=== PATIENT | male | born 1970 | race Caucasian/White ===

== ENCOUNTER 2016-07-30 21:36 | Emergency (ER) | payer OTHER ==
[~2016-07-30] VITALS: Ht 170.2 cm; Wt 69.9 kg
[~2016-07-30 21:36] MED LIST: BUPR150T15 PO; PRED50TA PO
[2016-07-30 22:51] VITALS: BP 97/61
[2016-07-30] MEDS ORDERED: HYDROXYZINE PAMOATE 25 MG CAPSULE PO ONE (23:00)
[2016-07-30] MEDS ORDERED: HYDR25TA PO (23:01)
--- NOTE | 2016-07-30 23:02 | PHYS DOC ---
Past Medical History Past Medical History: Anxiety, Depression Additional Past Medical Histor: Eczema, ?Bipolar/Schizophrenia Past Surgical History: Other Additional Past Surgical Histo: Hernia, Eye Alcohol Use: Occasionally Drug Use: Marijuana Adult General Chief Complaint Chief Complaint: PSYCH EVALUATION [facility] HPI Patient is a 46 year old male with possible bipolar or schizophrenia on chronic Invega injection monthly who presents with recent stress, chronic stable auditory hallucinations, and chronic itching due to eczema. States his intake and does not control his auditory hallucinations as well as he would like , and they're somewhat worse with stress. He has not discussed this with his psychiatrist at [facility]. He has a meeting with his biomedical equipment technician tomorrow and plans to discuss this. He denies suicidality, homicidality, visual hallucinations, command hallucinations. He denies headache, vision changes, fever or chills, nausea or vomiting, diarrhea, dysuria. He uses triamcinolone cream for eczema. Review of Systems Review of Systems Constitutional: Denies fever or chills [] Eyes: Denies change in visual acuity, redness, or eye pain [] HENT: Denies nasal congestion or sore throat [] Respiratory: Denies cough or shortness of breath [] Cardiovascular: No additional information not addressed in HPI [] GI: Denies abdominal pain, nausea, vomiting, bloody stools or diarrhea [] : Denies dysuria or hematuria [] Musculoskeletal: Denies back pain or joint pain [] Integument: Denies skin lesions [] Neurologic: Denies headache, focal weakness or sensory changes [] Endocrine: Denies polyuria or polydipsia [] Current Medications Current Medications Current Medications Medications (Trade) Dose Ordered Sig/Isac Start Time Stop Time Status Last Admin Dose Admin Hydroxyzine Pamoate (Vistaril) 25 mg 1X ONCE 07/30/16 23:00 07/30/16 23:01 DC 07/30/16 23:06 25 MG Allergies Allergies Allergies Coded Allergies Type Severity Reaction Last Updated Verified peanut Allergy Severe 09/06/14 No Penicillins Allergy Intermediate 09/06/14 Yes fish derived Allergy Intermediate 09/06/14 No Physical Exam Physical Exam Constitutional: Well developed, well nourished, no acute distress, non-toxic appearance. [] HENT: Normocephalic, atraumatic, bilateral external ears normal, oropharynx moist, no oral exudates, nose normal. [] Eyes: Right pupil reactive to light, left eye clouded, EOMI, conjunctiva normal , no discharge. [] Neck: Normal range of motion, no tenderness, supple. [] Cardiovascular:Heart rate regular rhythm [] Lungs & Thorax: Bilateral breath sounds clear to auscultation [] Abdomen: Bowel sounds normal, soft, no tenderness. [] Skin: Warm, dry. Diffuse eczema plaques to extremities and thorax [] Back: Normal ROM. [] Extremities: No tenderness, ROM intact, no edema. [] Neurologic: Alert and oriented X 3, normal motor function, normal sensory function, no focal deficits noted. [] Psychologic: Affect normal, judgement normal, mood normal. [] Current Patient Data Vital Signs Vital Signs Date Time Temp Pulse Resp B/P Pulse Ox O2 Delivery O2 Flow Rate FiO2 07/30/16 22:51 96 18 97/61 99 Room Air 07/30/16 21:40 97.5 97.5 Course & Med Decision Making Course & Med Decision Making Pertinent Labs and Imaging studies reviewed. (See chart for details) He appears clinically stable and has a close follow up plan with psychiatry and his case management coordinator. Discussed vistaril can help with itching, but otherwise discussed supportive care. Return precautions given. He understands and agrees with plan. Dragon Disclaimer Dragon Disclaimer This electronic medical record was generated, in whole or in part, using a voice recognition dictation system. Departure Departure Impression: Primary Impression: Auditory hallucinations Additional Impression: Eczema Disposition: 01 HOME, SELF-CARE Condition: STABLE Referrals: MARIELA MULLER MD (PCP) Patient Instructions: Eczema Additional Instructions: Take hydroxyzine as needed for itching. Continue your triamcinolone cream. Follow-up with your psychiatrist and primary care doctor within one week. Return for any concerns. Scripts Hydroxyzine Hcl 25 Mg Tablet1 Tab PO TID PRN ITCHING #14 TAB Prov:Jenny LAWRENCE MD 07/30/16 Problem Qualifiers Additional Impression: Eczema Eczema type: unspecified Qualified Code: L30.9 - Dermatitis, unspecified Jenny LAWRENCE MD Jul 30, 2016 23:02
== END 2016-07-30 23:15 | disposition home or self-care (01) ==
LOC: ER 21:36
DX: R44.0 Auditory hallucinations (principal); L30.9 Dermatitis, unspecified; F41.9 Anxiety disorder, unspecified; F32.9 Major depressive disorder, single episode, unspecified; F12.10 Cannabis abuse, uncomplicated; Z91.010 Allergy to peanuts; Z88.0 Allergy status to penicillin; Z91.013 Allergy to seafood
CPT/HCPCS: 99283; Q0177

== ENCOUNTER 2017-06-14 09:07 | Inpatient (IN) | payer OTHER ==
[2017-06-14] MEDS: IPRATRPIUM/ALBUTEROL 0.5/2.5MG 3 ML NEBU. NEB ×4 (09:31→19:50)
[2017-06-14 10:28] LABS: ADD MAN DIFF? NO
[2017-06-14] MEDS: methylPREDNISolone SOD SUCC PF 125 MG/2 ML VIAL. IV ×3 (10:33→21:20)
[2017-06-14 10:35] LABS: BASO # 0.1 x10^3/uL (0.0-0.2); BASO % 1 % (0-3); EOS # 0.9 x10^3/uL (0.0-0.7); EOS % 10 % (0-3); HEMATOCRIT 45.6 % (39.0-53.0); HEMOGLOBIN 15.2 g/dL (13.0-17.5); LYMPH # 2.2 x10^3/uL (1.0-4.8); LYMPH % 24 % (24-48); MEAN CORPUSCULAR HEMOGLOBIN 31 pg (25-35); MEAN CORPUSCULAR HGB CONC 33 g/dL (31-37); MEAN CORPUSCULAR VOLUME 94 fL (79-100); MONO % 12 % (0-9); NEUT # 4.8 x10^3uL (1.8-7.7); NEUT % 54 % (31-73); PLATELET COUNT 221 x10^3/uL (140-400); RED BLOOD COUNT 4.85 x10^6/uL (4.30-5.70); RED CELL DISTRIBUTION WIDTH 14.6 % (11.5-14.5)
[2017-06-14 10:42] LABS: ANION GAP 10 (6-14); BLOOD UREA NITROGEN 17 mg/dL (8-26); BUN/CREATININE RATIO 21 (6-20); CALCIUM 9.3 mg/dL (8.5-10.1); CARBON DIOXIDE 29 mmol/L (21-32); CHLORIDE 101 mmol/L (98-107); CREATININE 0.8 mg/dL (0.7-1.3); GFR 104.5; GLUCOSE 97 mg/dL (70-99); SODIUM 140 mmol/L (136-145)
[2017-06-14 10:48] LABS: ALBUMIN 3.8 g/dL (3.4-5.0); ALK PHOS 92 U/L (46-116); ALT (SGPT) 27 U/L (16-63); AST (SGOT) 24 U/L (15-37); TOTAL BILIRUBIN 0.3 mg/dL (0.2-1.0); TOTAL PROTEIN 7.6 g/dL (6.4-8.2)
[2017-06-14] MEDS: ALBUTEROL SULFATE 2.5 MG/3 ML NEBU. CONT NEB (12:38)
[2017-06-14] MEDS: AZITHRMYCN 500MG IVPB FOR OMNI 250 ML IV (13:14)
[2017-06-14] MEDS ORDERED: ALBUTEROL SULFATE 2.5 MG/3 ML NEBU. NEB (13:15)
[2017-06-14] MEDS ORDERED: ONDANSETRON PF 4 MG/2 ML VIAL. IV (13:15)
[2017-06-14] MEDS ORDERED: HYDROCORTISONE 1% TOPICAL OINTMENT 30GM TUBE. TP (15:30)
[2017-06-14] MEDS ORDERED: buPROPion XL 150 MG TAB.ER.24H. PO (15:30)
[2017-06-14] MEDS ORDERED: MINERAL OIL/PETROLATUM TOPICAL CREAM 113GM JAR. TP (15:30)
[2017-06-14] MEDS: ENOXAPARIN 40 MG/0.4 ML SYRINGE. SQ (15:51)
[2017-06-14] MEDS: buPROPion XL 150 MG TAB.ER.24H. PO (15:56)
[2017-06-14] MEDS: BUDESONIDE 0.5 MG/2 ML NEBU. NEB (19:50)
[2017-06-14] MEDS: TRIAMCINOLONE ACETONIDE 0.1% TOPICAL CREAM 15GM TUBE. TP ×2 (21:00)
[2017-06-15] MEDS: IPRATRPIUM/ALBUTEROL 0.5/2.5MG 3 ML NEBU. NEB ×5 (01:42→14:53)
[2017-06-15] MEDS: methylPREDNISolone SOD SUCC PF 125 MG/2 ML VIAL. IV ×2 (05:19→14:00)
[2017-06-15] MEDS: BUDESONIDE 0.5 MG/2 ML NEBU. NEB (06:04)
[2017-06-15] MEDS: buPROPion XL 150 MG TAB.ER.24H. PO (08:37)
[2017-06-15] MEDS: TRIAMCINOLONE ACETONIDE 0.1% TOPICAL CREAM 15GM TUBE. TP (08:38)
[2017-06-15] MEDS: ENOXAPARIN 40 MG/0.4 ML SYRINGE. SQ (15:04)
== END 2017-06-15 16:27 | disposition home or self-care (01) | DRG 189 ==
LOC: ER 09:07 → 5 NORTH 12:18
DX: J96.01 Acute respiratory failure with hypoxia (principal); F20.9 Schizophrenia, unspecified; J44.1 Chronic obstructive pulmonary disease with (acute) exacerbation; J45.901 Unspecified asthma with (acute) exacerbation; F12.90 Cannabis use, unspecified, uncomplicated; F32.9 Major depressive disorder, single episode, unspecified; F41.9 Anxiety disorder, unspecified; L30.9 Dermatitis, unspecified; Z91.010 Allergy to peanuts; Z88.0 Allergy status to penicillin; Z91.013 Allergy to seafood; F17.210 Nicotine dependence, cigarettes, uncomplicated
CPT/HCPCS: 36415; 71046; 80053; 85025; 87040; 94640; 94644; 94760; 96365; 96375; 99285-25; J0456; J1650; J2930; J7613; J7620; J7626

== ENCOUNTER 2018-02-05 09:51 | Emergency (ER) | payer OTHER ==
[~2018-02-05] VITALS: Ht 170.2 cm; Wt 73.5 kg
[~2018-02-05 09:51] MED LIST changes: +FLUT1DIS IH; +HYDR25TA PO; +METH4TAB2 PO; +PRED-220 PO; +PRED20TA PO; +PROAIR HFA8.5 GM INH; +TRIA15CR TP; +TRIA15CR3 TP
[2018-02-05] MEDS ORDERED: ACETAMINOPHEN 500 MG TABLET PO ONE (10:15)
--- NOTE | 2018-02-05 10:26 | RAD ---
ANKLE RIGHT 3V, TIBIA FIBULA RIGHT Clinical Indication: RIGHT ANKLE AND LOWER LEG PAIN AFTER FALL X1 DAY AGO Comparison: None. Findings: No obvious deformity of the knee. No acute fracture of the tibia or fibula. No soft tissue swelling of the calf. Ankle mortise is intact. No soft tissue swelling of the ankle. No ankle joint effusion. Small plantar calcaneal enthesophyte. Mineralization is normal. IMPRESSION: No acute fracture. Electronically signed by: Dmitry Park MD (02/05/2018 10:23 AM) [facility]
--- NOTE | 2018-02-05 10:26 | RAD ---
ANKLE RIGHT 3V, TIBIA FIBULA RIGHT Clinical Indication: RIGHT ANKLE AND LOWER LEG PAIN AFTER FALL X1 DAY AGO Comparison: None. Findings: No obvious deformity of the knee. No acute fracture of the tibia or fibula. No soft tissue swelling of the calf. Ankle mortise is intact. No soft tissue swelling of the ankle. No ankle joint effusion. Small plantar calcaneal enthesophyte. Mineralization is normal. IMPRESSION: No acute fracture. Electronically signed by: Dmitry Park MD (02/05/2018 10:23 AM) [facility]
[2018-02-05] MEDS ORDERED: IBUPROFEN 400 MG TABLET. PO ONE (10:30)
--- NOTE | 2018-02-05 10:34 | PHYS DOC ---
Past Medical History Past Medical History: Anxiety, Asthma, Depression, Other Additional Past Medical Histor: Eczema, ?Bipolar/Schizophrenia LEGALLY BLIND IN LEFT EYE Past Surgical History: Other Additional Past Surgical Histo: HERNIA, L EYE Alcohol Use: Sober Additional Information: PT STATES HE HAS BEEN SOBER FOR TWO MONTHS Drug Use: Marijuana Social History Narrative: PT STATES SMOKED ONE JOINT LAST NIGHT. Adult General Chief Complaint Chief Complaint: MECHANICAL FALL HPI HPI Patient is a 47 year old male who presents with pain to his right lower leg and ankle after he [place]. The patient states he is homeless and was sharing his blanket with a friend. He states the friend took the blanket so he went to the casino to get warm. He states that he miss stepped off of the curb falling. He arrives to the emergency department via EMS. He denies loss of consciousness or any other injury. Review of Systems Review of Systems Constitutional: Denies fever or chills [] Eyes: Denies change in visual acuity, redness, or eye pain [] HENT: Denies nasal congestion or sore throat [] Respiratory: Denies cough or shortness of breath [] Cardiovascular: No additional information not addressed in HPI [] GI: Denies abdominal pain, nausea, vomiting, bloody stools or diarrhea [] : Denies dysuria or hematuria [] Musculoskeletal: See history of present illness Integument: Denies rash or skin lesions [] Neurologic: Denies headache, focal weakness or sensory changes [] Endocrine: Denies polyuria or polydipsia [] All other systems were reviewed and found to be within normal limits, except as documented in this note. Current Medications Current Medications Current Medications Medications (Trade) Dose Ordered Sig/Isac Start Time Stop Time Status Last Admin Dose Admin Acetaminophen (Tylenol) 1,000 mg 1X ONCE 02/05/18 10:15 02/05/18 10:16 DC 02/05/18 10:19 1,000 MG Ibuprofen (Motrin) 800 mg 1X ONCE 02/05/18 10:30 02/05/18 10:30 DC Allergies Allergies Allergies Coded Allergies Type Severity Reaction Last Updated Verified peanut Allergy Severe 09/06/14 No Penicillins Allergy Intermediate 09/06/14 Yes fish derived Allergy Intermediate 09/06/14 No ibuprofen Allergy Unknown nauseated and redness 10/13/18 Yes Physical Exam Physical Exam Constitutional: Well developed, well nourished, no acute distress, non-toxic appearance. [] Cardiovascular:Heart rate regular rhythm, no murmur [] Lungs & Thorax: Bilateral breath sounds clear to auscultation [] Abdomen: Bowel sounds normal, soft, no tenderness, no masses, no pulsatile masses. [] Skin: Warm, dry, no erythema, no rash. [] Back: No tenderness, no CVA tenderness. [] Extremities: right lower leg and ankle tenderness, no cyanosis, no clubbing, ROM intact, no edema or ecchymosis noted. [] Neurologic: Alert and oriented X 3, normal motor function, normal sensory function, no focal deficits noted. [] Psychologic: Affect normal, judgement normal, mood normal. [] Current Patient Data Vital Signs Vital Signs Date Time Temp Pulse Resp B/P (MAP) Pulse Ox O2 Delivery O2 Flow Rate FiO2 02/05/18 09:51 97.9 104 16 131/90 (104) 98 Room Air 97.9 EKG EKG [] Radiology/Procedures Radiology/Procedures []PATIENT: RIANA ZAPIEN OACCOUNT: [id number]#: [id number] : 1970 LOCATION: ER AGE: 47 SEX: M EXAM STATUS: REG ER ORD. PHYSICIAN: MONIKA MO APRN REASON: fell this morning PROCEDURE: ANKLE RIGHT 3V ANKLE RIGHT 3V, TIBIA FIBULA RIGHT Clinical Indication: RIGHT ANKLE AND LOWER LEG PAIN AFTER FALL X1 DAY AGO Comparison: None. Findings: No obvious deformity of the knee. No acute fracture of the tibia or fibula. No soft tissue swelling of the calf. Ankle mortise is intact. No soft tissue swelling of the ankle. No ankle joint effusion. Small plantar calcaneal enthesophyte. Mineralization is normal. IMPRESSION: No acute fracture. Electronically signed by: Dmitry Kevin MD (02/05/2018 10:23 AM) [facility] DICTATED and SIGNED BY: DMITRY KEVIN MD DATE: 02/05/18 1021 Course & Med Decision Making Course & Med Decision Making Pertinent Labs and Imaging studies reviewed. (See chart for details) []The patient was placed in an Shaun wrap and given crutches for comfort. He was given Tylenol in the emergency department for pain. Dragon Disclaimer Dragon Disclaimer This electronic medical record was generated, in whole or in part, using a voice recognition dictation system. Departure Departure Impression: Primary Impression: Ankle pain Additional Impression: Right leg pain Disposition: HOME, SELF-CARE Condition: STABLE Referrals: NO PCP (PCP) Patient Instructions: Ankle Pain Additional Instructions: You may take Tylenol for pain. You have been given crutches and crutch training. Be careful that you do not fall and injure yourself using the crutches. Follow-up with your primary care provider in 3 days if not improving or return to the emergency department if worsening. Problem Qualifiers MONIKA MO APRN Feb 05, 2018 10:34
[2018-02-05 11:08] VITALS: BP 135/76
== END 2018-02-05 10:58 | disposition home or self-care (01) ==
LOC: ER 09:51
DX: M25.571 Pain in right ankle and joints of right foot (principal); M79.661 Pain in right lower leg; G89.11 Acute pain due to trauma; J45.909 Unspecified asthma, uncomplicated; F31.9 Bipolar disorder, unspecified; F20.9 Schizophrenia, unspecified; F17.200 Nicotine dependence, unspecified, uncomplicated; Z88.0 Allergy status to penicillin; Z88.8 Allergy status to other drugs, medicaments and biological substances; Z91.010 Allergy to peanuts; Z91.013 Allergy to seafood; W01.0XXA Fall on same level from slipping, tripping and stumbling without subsequent striking against object, initial encounter; Y93.89 Activity, other specified; Y92.89 Other specified places as the place of occurrence of the external cause; Y99.8 Other external cause status
CPT/HCPCS: 73590; 73610; 99284

== ENCOUNTER 2021-02-23 18:51 | Emergency (ER) | payer SELFPAY ==
[~2021-02-23] VITALS: Ht 170.2 cm; Wt 68.6 kg
[~2021-02-23 18:51] MED LIST changes: +ALBU2.5V8 INH; -PROAIR HFA8.5 GM INH
--- NOTE | 2021-02-23 22:50 | PHYS DOC ---
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 He is currently homeless. He states when he got health does not help him. He states he has been out of his schizophrenia medications for 3 weeks. He does do amphetamines, smokes cigarettes. He is also complaining of help at his eczema is and he is itching very badly. He is demanding food upon arrival. Patient is legally blind in his left eye, history of smoking, schizophrenia, eczema, bipolar, depression, anxiety, asthma. Denies chest pain, shortness of air, fever, headache or dizziness, syncope, abdominal pain, nausea, vomiting, diarrhea, focal weakness, vision change. ([facility]) Review of Systems: Review of Systems: Constitutional: Denies fever or chills. [] Eyes: Denies change in visual acuity. [] HENT: Denies nasal congestion or sore throat. [] Respiratory: Denies cough or shortness of breath. [] Cardiovascular: Denies chest pain or edema. [] GI: Denies abdominal pain, nausea, vomiting, bloody stools or diarrhea. [] : Denies dysuria. [] Musculoskeletal: Denies back pain or joint pain. [] Integument: Denies rash. + Itching [] Neurologic: Denies headache, focal weakness or sensory changes. [] Endocrine: Denies polyuria or polydipsia. [] Lymphatic: Denies swollen glands. [] Psychiatric: Denies depression or anxiety. 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) Heart Score: C/O Chest Pain: No ([facility]) Allergies: Allergies: Allergies Coded Allergies Type Severity Reaction Last Updated Verified Iodine and Iodide Containing Produc Allergy Severe 02/06/18 Yes peanut Allergy Severe 09/06/14 No shellfish derived Allergy Severe 02/06/18 Yes Penicillins Allergy Intermediate 09/06/14 Yes fish derived Allergy Intermediate 09/06/14 No ibuprofen Allergy Unknown nauseated and redness 02/05/18 Yes (ERON GARCIA APRN) Physical Exam: PE: Constitutional: Well developed, well nourished, no acute distress, non-toxic appearance. [] HENT: Normocephalic, atraumatic, bilateral external ears normal, oropharynx moist, no oral exudates, nose normal. [] Eyes: PERRLA, EOMI, conjunctiva normal, no discharge. [] Neck: Normal range of motion, no tenderness, supple, no stridor. [] Cardiovascular:Heart rate regular rhythm, no murmur [] Lungs & Thorax: Bilateral breath sounds clear to auscultation [] Abdomen: Bowel sounds normal, soft, no tenderness, no masses, no pulsatile masses. [] Skin: Warm, dry, no erythema, no rash. Eczema to hands [] Back: No tenderness, no CVA tenderness. [] Extremities: No tenderness, no cyanosis, no clubbing, ROM intact, no edema. [] Neurologic: Alert and oriented X 3, normal motor function, normal sensory function, no focal deficits noted. [] Psychologic: Affect normal, judgement normal, mood normal. Anxious. [] (ERON GARCIA APRN) EKG: EKG: [] (ERON GARCIA APRN) Radiology/Procedures: Radiology/Procedures: [] (ERON GARCIA APRN) Course & Med Decision Making: Course & Med Decision Making Pertinent Labs and Imaging studies reviewed. (See chart for details) See HPI. Alert and oriented x4. Speaks in full clear sentences. Anxious. States he is itching so bad that he wants to set himself on fire. He is mad about losing his apartment. He is mad that [employer] would not help him get his medications or even let him take a shower. States he is also suicidal and homicidal. He states he is hearing voices. Patient refusing to talk to PAT team been. He is yelling aggressively at staff. Patient is refusing to have a blood draw. He is screaming that he wants medication for his skin that is itching. Patient states he wants Benadryl and steroids. I have ordered Benadryl and dexamethasone. 0100: Patient is signed over to Dr Jesus. [] (ERON GARCIA APRN) Course & Med Decision Making PAT team is looking for placement at this time. Patient care was endorsed to Dr. Sarah Freeman at shift change. (JAXON JESUS DO) Course & Med Decision Making This patient was initially seen by Dr. Jesus. Please see his note for further details of H&P. The patient was awaiting voluntary psychiatric admission. He has been calm and cooperative here, he was evaluated for admission at [facility], and he was accepted there for voluntary inpatient psychiatric admission. He required no intervention from me, no pharmacologic intervention for me to the nursing staff, he has been appropriate here. (SARAH FREEMAN DO) Dragon Disclaimer: Dragon Disclaimer: This electronic medical record was generated, in whole or in part, using a voice recognition dictation system. (ERON GARCIA APRN) Departure Departure Impression: Primary Impression: Suicidal ideation [facility] Condition: STABLE Referrals: NO PCP (PCP) ERON GARCIA APRN Feb 23, 2021 22:50 JAXON JESUS DO Feb 24, 2021 05:50 SARAH FREEMAN DO Feb 24, 2021 09:00
[2021-02-23] MEDS ORDERED: DEXAMETHASONE SOD PHOS 4 MG/ML VIAL ONE (23:56)
[2021-02-24] MEDS ORDERED: DEXAMETHASONE SOD PHOS 20 MG/5 ML VIAL. IV ONE
[2021-02-24] MEDS ORDERED: diphenhydrAMINE 50 MG/ML VIAL IVP ONE
[2021-02-24] MEDS ORDERED: HYDROCORTISONE 1% LOTION BOTTLE. TP ONE (00:15)
[2021-02-24 00:26] LABS: BARBITURATES NEG (NEG); BENZODIAZEPINES NEG (NEG); CANNABINOIDS NEG (NEG); COCAINE NEG (NEG); METHADONE NEG (NEG); OPIATES NEG (NEG); PHENCYCLIDINE NEG (NEG)
[2021-02-24 00:28] LABS: AMPHETAMINE/METHAMPHETAMINE POS (NEG)
[2021-02-24 00:40] LABS: ACETAMIN < 2 mcg/ml (10-30); ETHANOL < 10 mg/dL (0-10); SALIC 2.2 mg/dL (2.8-20.0)
[2021-02-24 09:37] VITALS: BP 150/76
--- NOTE | 2021-02-24 16:22 | NUR ---
IP: Notified Charge Nurse at [facility] of Pt's positive covid PCR. Nurse very upset and asking why we did 2 tests. I did explain that we did and initial antigen which is negative. When the antigen is negative we send same sample out for PCR confirmation and pt's returned positive. Nurse verbalized understanding.
== END 2021-02-24 09:39 ==
LOC: ER 18:51
DX: R45.851 Suicidal ideations (principal); Z20.822 Contact with and (suspected) exposure to COVID-19; J45.909 Unspecified asthma, uncomplicated; F31.9 Bipolar disorder, unspecified; F17.200 Nicotine dependence, unspecified, uncomplicated; F17.210 Nicotine dependence, cigarettes, uncomplicated; Z91.010 Allergy to peanuts; Z91.013 Allergy to seafood; Z91.018 Allergy to other foods
CPT/HCPCS: 36415; 80307; 80329; 87426; 96374; 96375; 99285; G0480; J1100; J1200; U0003; U0005

== ENCOUNTER 2021-03-06 12:27 | Emergency (ER) | payer SELFPAY ==
[~2021-03-06] VITALS: Ht 170.2 cm; Wt 68.6 kg
--- NOTE | 2021-03-06 12:42 | PHYS DOC ---
Past Medical History Past Medical History: Anxiety, Asthma, Depression, Other Additional Past Medical Histor: Eczema, ?Bipolar/Schizophrenia LEGALLY BLIND IN LEFT EYE Past Surgical History: Other Additional Past Surgical Histo: HERNIA, L EYE Smoking Status: Current Every Day Smoker Alcohol Use: None Drug Use: Marijuana General Adult EDM: Chief Complaint: MULTIPLE COMPLAINTS HPI: HPI: Patient is a 51 year old male who presents with diffuse body itching. He has a history of chronic eczema, reported history of psoriasis. He has not had treatment for this condition for several months. He denies any acute changes or worsened symptoms today. He denies open wounds or bleeding. He reports intense itching mostly at his scalp, chest, neck and arms. He reports that he usually responds well to prednisone, antihistamines and triamcinolone ointment. He is requesting an IV with Solu-Medrol, Benadryl and Pepcid, which she has received previously. He denies any new exposures. He is not using any emollients or lotions or moisturizers. He denies dyspnea, cough, sore throat, facial or oral swelling. Denies wheezing. He ported to the nurse that he has been using methamphetamine. He is overall otherwise a relatively poor historian, demonstrates psychomotor agitation and has intermittent hostility towards staff. Review of Systems: Review of Systems: Constitutional: Denies fever or chills. [] Eyes: Denies change in visual acuity. [] HENT: Denies nasal congestion or sore throat. [] Respiratory: Denies cough or shortness of breath. [] Cardiovascular: Denies chest pain or edema. [] GI: Denies abdominal pain, nausea, vomiting, bloody stools or diarrhea. [] : Denies dysuria. [] Musculoskeletal: Denies back pain or joint pain. [] Integument: Diffuse rash, itching, eczema Neurologic: Denies headache, focal weakness or sensory changes. [] [] Psychiatric: Anxiety and mood disturbance. Denies SI or HI. [] Heart Score: C/O Chest Pain: No Risk Factors: Risk Factors: DM, Current or recent (<one month) smoker, HTN, HLP, family history of CAD, obesity. Risk Scores: Score 0 - 3: 2.5% MACE over next 6 weeks - Discharge Home Score 4 - 6: 20.3% MACE over next 6 weeks - Admit for Clinical Observation Score 7 - 10: 72.7% MACE over next 6 weeks - Early Invasive Strategies Allergies: Allergies: Allergies Coded Allergies Type Severity Reaction Last Updated Verified Iodine and Iodide Containing Produc Allergy Severe 02/06/18 Yes peanut Allergy Severe 09/06/14 No shellfish derived Allergy Severe 02/06/18 Yes Penicillins Allergy Intermediate 09/06/14 Yes fish derived Allergy Intermediate 09/06/14 No ibuprofen Allergy Unknown nauseated and redness 02/05/18 Yes Physical Exam: PE: Constitutional: Well developed, well nourished, no acute distress, non-toxic appearance. He is disheveled and appears older than stated age. He is not acutely ill-appearing HENT: Normocephalic, atraumatic, no facial or oral swelling. Oropharynx is patent and clear. Mucous membranes are moist. Eyes: Sclera clear, anicteric Neck: Normal range of motion, no tenderness, supple, no stridor. Trachea midline Cardiovascular:Heart rate regular rhythm Lungs & Thorax: Bilateral breath sounds clear to auscultation [] Abdomen: Abdomen soft, nondistended, nontender Skin: Diffuse, symmetric rash of the scalp, face, anterior and posterior neck, anterior posterior trunk, chest, abdomen, bilateral upper and lower extremities, with significant skin dryness, scales, some scattered plaques, mild erythema, most notable at sites where he is actively scratching. No focal areas of fluctuance, induration, warmth erythema. No areas of bleeding or open wounds. No vesicles or pustules noted. Back: Full range of motion, no deformity Extremities: No tenderness, no cyanosis, no clubbing, ROM intact, no edema. [] Neurologic: Alert and oriented X 3, ambulatory with a steady gait, speech is fluent Psychologic: He is anxious, intermittently agitated, intermittently hostile towards staff, he is able to be redirected verbally. [] EKG: EKG: [] Radiology/Procedures: Radiology/Procedures: [] Course & Med Decision Making: Course & Med Decision Making IV Solu-Medrol, IV Pepcid, IV Benadryl, p.o. Vistaril are given here. He repeatedly insist that he wants prescription sent to [facility] on , so this is done. I prescribed triamcinolone ointment, prednisone as well as hydroxyzine. I explained that it is imperative that he follow-up with a primary care physician. I recommend he stop scratching at the areas, as this will increase his risk of an open wounds infections. He may use ice packs to help counteract the effects of pruritus as well. There is no current indication for further invasive exams, imaging or admission. Return precautions are given. Dragon Disclaimer: Dragon Disclaimer: This electronic medical record was generated, in whole or in part, using a voice recognition dictation system. Departure Departure Impression: Primary Impression: Eczema Qualified Codes: L30.9 - Dermatitis, unspecified Additional Impression: Chronic pruritus Disposition: HOME / SELF CARE / HOMELESS Condition: STABLE Referrals: NO PCP (PCP) Patient Instructions: Eczema Additional Instructions: Take medications as directed. Please try to avoid scratching your skin, as this will increase your risk for wounds and infection. You may try ice packs to help with itching as well. Return for fever 100.4 or higher, open wounds with yellow or green drainage, large painful, red areas or any other concerns. Please contact your primary care physician for follow-up and for further refills of your eczema medication. Scripts Triamcinolone Acetonide (TRIAMCINOLONE ACETONIDE 0.1% OINT) 15 Gm Oint...g. 1 DIMITRI TP BID for WOUND CARE, #120 GM MIX WITH EUCERIN DIRECTED BY PHYSICIAN Prov: GLO FREEMAN DO 03/06/21 Hydroxyzine Hcl (HYDROXYZINE HCL) 25 Mg Tablet 1 TAB PO TID for itching, #30 TAB Prov: GLO FREEMAN DO 03/06/21 Prednisone (PREDNISONE) 50 Mg Tablet 1 TAB PO DAILY for 4 Days, #4 TAB Prov: GLO FREEMAN DO 03/06/21 GLO FREEMAN DO Mar 06, 2021 12:42
[2021-03-06] MEDS ORDERED: diphenhydrAMINE 50 MG/ML VIAL IVP ONE (13:00)
[2021-03-06] MEDS ORDERED: methylPREDNISolone SOD SUCC PF 125 MG/2 ML VIAL. IV ONE (13:00)
[2021-03-06] MEDS ORDERED: FAMOTIDINE 20 MG/2 ML VIAL IVP ONE (13:00)
[2021-03-06 15:19] VITALS: BP 145/82
[2021-03-06] MEDS ORDERED: hydrOXYzine 25 MG TABLET PO PRN (15:45)
[2021-03-06] MEDS ORDERED: HYDR25TA PO (15:49)
[2021-03-06] MEDS ORDERED: PRED50TA PO (15:49)
[2021-03-06] MEDS ORDERED: TRIA15OI TP (15:49)
== END 2021-03-06 16:10 | disposition home or self-care (01) ==
LOC: ER 12:27
DX: L30.9 Dermatitis, unspecified (principal); L29.8 Other pruritus; J45.909 Unspecified asthma, uncomplicated; F31.9 Bipolar disorder, unspecified; F17.200 Nicotine dependence, unspecified, uncomplicated; Z88.0 Allergy status to penicillin; Z91.010 Allergy to peanuts; Z88.8 Allergy status to other drugs, medicaments and biological substances; Z91.041 Radiographic dye allergy status; Z91.013 Allergy to seafood
CPT/HCPCS: 96374; 96375; 99285; J1200; J2930; J3490; 99283; 99284

== ENCOUNTER 2021-03-09 16:57 | Emergency (ER) | payer SELFPAY ==
[~2021-03-09] VITALS: Ht 170.2 cm; Wt 68.0 kg
[~2021-03-09 16:57] MED LIST changes: +TRIA15OI TP
[2021-03-09 17:04] VITALS: BP 152/112
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
[2021-03-09] MEDS ORDERED: ACETAMINOPHEN 325 MG TABLET. PO ONE (17:45)
== END 2021-03-09 17:53 | disposition home or self-care (01) ==
LOC: ER 16:57
DX: S20.211A Contusion of right front wall of thorax, initial encounter (principal); J45.909 Unspecified asthma, uncomplicated; Z87.891 Personal history of nicotine dependence; Z95.0 Presence of cardiac pacemaker; Z88.0 Allergy status to penicillin; Z91.041 Radiographic dye allergy status; Z91.010 Allergy to peanuts; Z91.013 Allergy to seafood; Z88.8 Allergy status to other drugs, medicaments and biological substances; Y08.89XA Assault by other specified means, initial encounter; Y92.89 Other specified places as the place of occurrence of the external cause; Y93.89 Activity, other specified; Y99.8 Other external cause status
CPT/HCPCS: 71101; 99283